=== PATIENT | male | born 1995 | race Caucasian/White ===

== ENCOUNTER 2019-09-13 14:05 | Emergency (ER) | payer OTHER ==
[~2019-09-13] VITALS: Ht 182.9 cm; Wt 68.0 kg
== END 2019-09-13 16:52 | disposition home or self-care (01) ==
LOC: ED 14:05
DX: K59.00 Constipation, unspecified (principal)
CPT/HCPCS: 74177; 80053; 81001; 85025; 96361; 96375; 99284-25; J1170; J2270; J2405; J7030; Q9967

== ENCOUNTER 2020-05-16 11:40 | Inpatient (IN) | payer OTHER ==
[~2020-05-16] VITALS: Ht 182.9 cm; Wt 69.9 kg
--- NOTE | ~2020-05-16 | HP ---
[facility] [address], [place] [address] Draft ADMISSION DATE: 05/16/2020 REASON FOR ADMISSION: Acute calculous cholecystitis. HISTORY OF PRESENT ILLNESS: This 24-year-old white man is accompanied by his father. The patient has been in the [facility] area assisting his girlfriend moving into a home of some sort. He normally resides in [place]. He presented to the emergency room at approximately 2:30 today and evaluated by Dr. Barton with severe right upper abdominal pain and tenderness. The patient was seen in the emergency room at [facility] in the [facility] on May 11, five days ago. An ultrasound showed a 9 mm gallstone with mild gallbladder wall thickening and sonographic Rose sign. He had normal lab studies including liver enzymes and so on and is discharged to follow up in the Surgery Clinic. He reappeared last night with similar symptoms. Normal labs. Once again noted and he was given pain medicine and antinausea medication. He still was not admitted for acute calculous cholecystitis which he clearly had. He then presented to the emergency room at [facility] where he is recognized by Dr. Barton to quite obviously have acute cholecystitis with tenderness in right subcostal area and the aforementioned findings. I was contacted, he was admitted directly for further evaluation and care. The patient has had pain more or less for several weeks, possibly longer. Only now has been problematic. PAST MEDICAL HISTORY: Remarkable only for Achilles tendon surgery a number of years ago at age [age] or so. This was not for rupture, but rather for lengthening somehow. He uses alcohol occasionally. He has been a smoker in the past. MEDICATIONS: Currently include Zofran and oxycodone. ALLERGIES: He has no known drug allergies. REVIEW OF SYSTEMS: He denies any shortness of breath or chest pain. He has had no dysuria or hematuria. Denies any blood per rectum or hematemesis. PATIENT NAME: THAO RAUSCH HISTORY AND PHYSICAL DATE OF : [birth year] REPORT #: [id number] PHYSICIAN: DANTE VILLANUEVA MD PCP: NO PRIMARY CARE PHYSICIAN REPORT IS CONFIDENTIAL AND NOT TO BE RELEASED WITHOUT AUTHORIZATION [facility] [address], [place] [address] Draft PHYSICAL EXAMINATION: GENERAL: Initially somnolent white man accompanied by his father who attends to him. HEENT: Mucous membranes are slightly dry. Trachea is midline. He has no hoarseness. CHEST: Shows normal respiratory excursion, pulses regular. ABDOMEN: Flat, but marked tenderness is noted in the right subcostal area. There is no palpable mass. He has no ascites. He is very thin. LABORATORY STUDIES: Show white count of 6.2, hematocrit 42.4, platelets 270,000. Electrolytes are normal, creatinine 0.75. Liver enzymes normal with alkaline phosphatase of 88. ASSESSMENT: Quite clearly he has acute cholecystitis. I discussed the pathophysiology of this problem with the patient and his father who attends to him. I would recommend cholecystectomy. For now, intravenous fluids, IV antibiotics, parental pain medication and so forth will be administered. We will allow clear liquids for comfort only, but no solid food until following operation. A laparoscopic approach would be intended. However, he may require an open procedure. He understands as does his father the risks of bleeding, infection, bile duct injury, need for open procedure, and failure to cure his symptoms, understanding this they wished to proceed. MD DAVID Brambila/TARSHAL /[id number] cc: Jalil Barton MD Copies: JALIL BARTON MD ~ PATIENT NAME: THAO RAUSCH HISTORY AND PHYSICAL DATE OF : [birth year] REPORT #: [id number] PHYSICIAN: DANTE VILLANUEVA MD PCP: NO PRIMARY CARE PHYSICIAN REPORT IS CONFIDENTIAL AND NOT TO BE RELEASED WITHOUT AUTHORIZATION
--- NOTE | ~2020-05-16 | OR ---
[facility] [address], [place] [address] Draft DATE OF OPERATION: 05/17/2020 SURGEON: Dante Villanueva MD PREOPERATIVE DIAGNOSIS: Acute calculous cholecystitis. POSTOPERATIVE DIAGNOSES: 1. Chronic cholecystitis, minimal debris of gallbladder. 2. Acute appendicitis (aberrant position of appendix in subhepatic space near gallbladder fossa). PROCEDURES: 1. Laparoscopic cholecystectomy with intraoperative cholangiogram. 2. Surgeon-directed fluoroscopy. 3. Laparoscopic appendectomy, prolonged, complicated and difficult. ANESTHESIA: General endotracheal; Alfonzo Donahue CRNA and local 10 mL of 0.25% Marcaine with epinephrine. INDICATION: This 24-year-old white man presented to the emergency room yesterday, having been seen at [facility] in the [facility] 5 days ago and some time subsequent to that. An ultrasound had showed a 9 mm gallstone with mild gallbladder wall thickening and a sonographic Rose sign. He had normal liver enzymes and white count. He was discharged to follow up in the Surgery Clinic in the [facility]. He reappeared and was found to have no elevation of liver enzymes, but markedly increase in right upper abdominal pain and tenderness. He still was not admitted for acute cholecystitis and presented to the emergency room at [facility] where is recognized by Dr. Barton to quite obviously have acute abdomen with tenderness in right subcostal area. Given his aforementioned findings, I was requested to see patient and admitted him directly for presumed acute calculous cholecystitis. Notably, his white count and liver enzymes remain normal. Clinical examination shows him to have marked tenderness in right subcostal area consistent with acute abdomen. A CT scan with contrast was performed at [facility] yesterday at 3:30 p.m. showing no radiopaque gallstones in the gallbladder, moderate amount of stool in the abdomen, appendix appeared normal right upper quadrant above the level of the gallbladder and fundus between the liver and the kidney. There was some small amount of pelvic fluid. Notably, the patient is quite thin with very few tissue planes to distinguish organs. PATIENT NAME: THAO RAUSCH OPERATIVE REPORT DATE OF : [birth year] REPORT #: [id number] PHYSICIAN: DANTE VILLANUEVA MD PCP: NO PRIMARY CARE PHYSICIAN REPORT IS CONFIDENTIAL AND NOT TO BE RELEASED WITHOUT AUTHORIZATION [facility] [address], [place] [address] Draft He has been given fluid resuscitation, parenteral pain medication, IV antibiotic Ancef anticipating cholecystectomy for acute cholecystitis today. The risks of bleeding, infection, bile duct injury, need for other indicated procedures and other unforeseen complications were reviewed in detail. He understands and wished to proceed. FINDINGS: Although, the gallbladder had mild chronic inflammation, there was no sign of acutely inflamed gallbladder, no thickened gallbladder wall or pericholecystic fluid. There were adhesions to the gallbladder consistent with chronic cholecystitis. The gallbladder was excised and once opened showed some debris within the gallbladder, but no stone proper. Cholangiogram was normal. Given discordant findings to his physical examination, close inspection was undertaken as regard the appendix. The base of the appendix near the cecum was normal. The appendix was retrocecal and retracted cephalad. Ultimately, the distal 3rd nestled in the subhepatic space on the right side just outside Gerota's fascia. It looked to be subacutely inflamed. There was no sign of purulence or perforation however. On that basis, the appendectomy was performed. The appendix did show subacute inflammation. There were no other findings of concern. DESCRIPTION OF PROCEDURE: The patient was brought to the operating room, given a general endotracheal anesthetic. Preoperative antibiotic Ancef had been given. Sequential compression device stockings were used and heparin subcutaneously administered. The abdomen was clipped and prepared with chlorhexidine solution and draped sterilely. An infraumbilical incision was made and using an open Nile cannula technique, pneumoperitoneum was achieved to a level of 14 mmHg of carbon dioxide gas. Intraabdominal inspection showed no sign of ascites or carcinomatosis, the liver was normal. The gallbladder was visualized and showed chronic inflammation, certainly not inflamed as I had expected based on his clinical exam. Three additional trocars were placed in usual configuration in the subxiphoid, right midclavicular, and right anterior axillary line. The gallbladder was elevated cephalad and had a few adherent omental adhesions, which were taken down with blunt and electrocautery dissection. Further elevation of the gallbladder was undertaken. The infundibulum grasped and using blunt and electrocautery dissection, the triangle of Calot was dissected free. Certainly, the gallbladder did not seem to have acute inflammation. The cystic duct was well identified, a clip was applied across the gallbladder cystic duct junction and transverse choledochotomy made in the cystic duct. Retrograde milking of the cystic duct showed clear bile. Using an Diane type cholangiocatheter, intraoperative cholangiography was undertaken showing free flow of contrast in biliary tree with prompt emptying into the duodenum. PATIENT NAME: THAO RAUSCH OPERATIVE REPORT DATE OF : [birth year] REPORT #: [id number] PHYSICIAN: DANTE VILLANUEVA MD PCP: NO PRIMARY CARE PHYSICIAN REPORT IS CONFIDENTIAL AND NOT TO BE RELEASED WITHOUT AUTHORIZATION [facility] [address] [place], [place] [address] Draft There was no anomaly or problem. The catheter was removed and the cystic duct was triply clipped and divided and the gallbladder dissected free in a retrograde fashion using electrocautery. The gallbladder was extracted through the infraumbilical port site, opened on the back table and instead of finding a 9 mm stone, has had been postulated elsewhere on ultrasound. There was no stone, but some debris within the gallbladder not much though. On the basis of the discordant findings of the gallbladder compared to his clinical examination, careful inspection of the appendix was undertaken. The base of the appendix appeared normal, but it tracked in a retrocecal position. It was followed by rolling the colon toward the midline and noted to extend all the way to the hepatic fossa. The distal 3rd of the appendix appeared to be inflamed, but not by any means, but definitely not normal. Adhesions from the incomplete rotation of the cecum and the aberrant placement of the appendix in the subhepatic space were freed with blunt and electrocautery dissection. Meticulous care was undertaken to mobilize the mesoappendix well. Ultimately, an Endo-ONEAL stapling load was used for part of it, although other areas were secured with clips. Once the mesoappendix was completely skeletonized, one could appreciate the length of the appendix and it's chronic inflammatory appearance. The base of the appendix was transected with Endo-ONEAL stapling device, flushed with the cecum, the appendix was extracted through the infraumbilical port site through the trocar and photograph taken of both specimens including the gallbladder and the appendix. Irrigation was undertaken in the retrohepatic area. Minimal amount of oozing at the staple line was secured with clips and some cautery. Some Laura was applied as well. By conclusion, there was no bleeding at all. Excess irrigation fluid was suctioned free. The trocars were removed under direct visualization and the infraumbilical fascial incision was reapproximated with interrupted 0 Vicryl suture. A 10 mL of 0.25% Marcaine with epinephrine was injected locally. The epigastric fascial incision was reapproximated with 0 Vicryl as well given his thin body habitus. The skin was closed with running subcuticular interrupted 3-0 Vicryl. Steri-Strips were applied. The patient was ultimately extubated and transferred to the recovery room in good condition having suffered no complication. In aggregate, I believe that patient had chronic cholecystitis, but acute appendicitis and the fecalith noted on ultrasound in [facility] in [facility] may have been related to the appendix itself that is uncertain. We await the pathology report for that information. Dante Villanueva MD PATIENT NAME: THAO RAUSCH OPERATIVE REPORT DATE OF : [birth year] REPORT #: [id number] PHYSICIAN: DANTE VILLANUEVA MD PCP: NO PRIMARY CARE PHYSICIAN REPORT IS CONFIDENTIAL AND NOT TO BE RELEASED WITHOUT AUTHORIZATION [facility] [address], [place] [address] Draft /TARSHAL /[id number] cc: Jalil Barton MD [facility] Emergency Room Copies: JALIL BARTON MD ~ PATIENT NAME: THAO ARUSCH BHARAT OPERATIVE REPORT DATE OF : [birth year] REPORT #: [id number] PHYSICIAN: DANTE VILLANUEVA MD PCP: NO PRIMARY CARE PHYSICIAN REPORT IS CONFIDENTIAL AND NOT TO BE RELEASED WITHOUT AUTHORIZATION
[2020-05-16] MEDS ORDERED: PERCOCET 10-321 EACH PO (12:40)
[2020-05-16] MEDS ORDERED: ONDANSETRON HCL8 MG PO (12:40)
--- NOTE | 2020-05-16 16:01 | NUR ---
PT ARRIVED TO UNIT VIA STRETCHER FROM ER. REPORT RECEIVED FROM KE ARSHAD. PT REPORTS CONSTANT SHARP, BURNING ABDOMINAL PAIN 5/10. VSS, PT IS AFEBRILE. WILL REMAIN NPO UNTIL FURTHER NOTICE. FATHER IS IN ROOM. PT GIVEN DR. VILLANUEVA ON WHAT TO EXPECT UPON GALLBLADDER REMOVAL. NEEDS FREQUENT EDUCATION. CALL LIGHT IN REACH.
--- NOTE | 2020-05-16 17:29 | NUR ---
DR VILLANUEVA IN SEEING PT NOW. FATHER REMAINS IN ROOM.
--- NOTE | 2020-05-16 18:19 | NUR ---
WILLIAN WAITE, REPORTED LOW BP 97/45. THIS RN RECHECKED VIA MANUAL AND BP WAS 92/58. MD AWARE. NO NEW ORDERS. PT IS RECEIVING FLUID BOLUS OF LR AT THIS TIME.
--- NOTE | 2020-05-16 18:20 | NUR ---
PT IS SEDATED LIKELY D/T PAIN MEDS IN ER. RESPONDS TO VERBAL STIMULI AND TOUCH. DROWSY WHEN AWAKE BUT ANSWERS QUESTIONS APPROPRIATELY.
--- NOTE | 2020-05-16 18:41 | NUR ---
MED REC COMPLETE
--- NOTE | 2020-05-16 19:00 | NUR ---
REPORT RECEIVED FROM TITA ARSHAD. PATIENT RESTING IN BED WITH EYES CLOSED. IVF INFUSING WNL. NO APPARENT NEEDS AT THIS TIME. CALL LIGHT IN REACH.
--- NOTE | 2020-05-16 20:00 | NUR ---
PT CALLING, ASKING IF HE CAN GET SOME WATER OR SOME FOOD, RN OK'D JELLO AND ICE WATER PER PT'S DIET
--- NOTE | 2020-05-16 20:30 | NUR ---
SCHEDULED MEDICATIONS ADMINISTERED, ASSESSMENT COMPLETE. VITALS AND I/O'S COMPLETE. IVF INFUSING WNL. ASSESSMENT UNREMARKABLE, BOWEL TONES ACTIVE, PT REPORTS 8/10 ABDOMINAL PAIN BUT REFUSES MORPHINE, REQUESTS DILAUDID. THIS RN PHONED DR VILLANUEVA, NEW ORDERS RECEIVED. ON CLEAR LIQUIDS UNTIL MIDNIGHT, TOLERATING WELL. CALL LIGHT IN REACH.
--- NOTE | 2020-05-16 21:40 | NUR ---
ABX ADMINISTERED ALONG WITH PRN TYLENOL. BROTH AND JELLO PROVIDED. PT ON PHONE WITH FRIENDS. NICOTINE PATCH APPLIED PER PT REQUEST, FIRST ADMINISTRATION OF THIS PATCH SINCE ADMISSION. PT STATES NO FURTHER NEEDS. CALL LIGHT WITHIN REACH.
--- NOTE | 2020-05-16 22:05 | NUR ---
CALL LIGHT ANSWERED, PT REQUESTS MORE BROTH. AMBULATES TO BR BY SELF. NO FURTHER REQUESTS AT THIS TIME. CALL LIGHT IN REACH
--- NOTE | 2020-05-16 23:29 | NUR ---
CONSENT FOR SURGERY SIGNED BY PATIENT, WITNESSED BY THIS RN. PT REPORTS NO NEEDS OR PAIN AT THIS TIME. ON PHONE WITH FRIENDS. IVF INFUSING WNL. NPO AT MIDNIGHT. CALL LIGHT IN REACH
--- NOTE | 2020-05-16 23:56 | NUR ---
ALL LIQUIDS REMOVED FROM ROOM, PATIENT REMINDED ABOUT HOSPITAL QUIET HOURS. IVF INFUSING WNL. CALL LIGHT IN REACH, NO FURTHER REQUESTS.
--- NOTE | 2020-05-17 02:23 | NUR ---
VITALS COMPLETE. PT AMBULATED TO BR BY SELF TO VOID. I/O'S COMPLETE. NPO. IVF INFUSING WNL. PT AWAKE AND STATES IS FEELING ANXIOUS ABOUT SURGERY, REASSURED AND DISCUSSED PLAN WITH PT. STATES NO NEEDS AT THIS TIME. CALL LIGHT IN REACH.
--- NOTE | 2020-05-17 04:11 | NUR ---
ROUNDED ON PATIENT, AWAKE TALKING ON THE PHONE. IVF INFUSING. NO NEEDS AT THIS TIME. CALL LIGHT IN REACH
--- NOTE | 2020-05-17 06:12 | NUR ---
SCHEDULED MEDICATIONS ADMINISTERED, VITALS COMPLETE. PT DROWSY, WAS AWAKE UNTIL APPROX 0400. IVF INFUSING WNL. LR HUNG ON STRAIGHT TUBING FOR SURGERY. CALL LIGHT IN REACH
--- NOTE | 2020-05-17 07:55 | NUR ---
IN TO WAKE PT FOR PRE SURGICAL [place]ED[place]. MORNING MEDS GIVEN AND ASSESSMENT COMPLETED. IV TORADOL GIVEN FOR 7 ABD PAIN. PT DENIES NAUSEA. REMAINS NPO. LR RUNNING @ 85 MLS/HR. VOIDING QUANTITY SUFFICIENT. NEW GOWN PUT ON. AWAITING SURGERY. CALL LIGHT IN REACH. NO OTHER NEEDS AT THIS TIME.
--- NOTE | 2020-05-17 09:02 | NUR ---
PATIENT AWAKE IN BED, VITALS AND I&OS CHARTED. CALL LIGHT IN REACH
--- NOTE | 2020-05-17 10:13 | NUR ---
PT AMBULATED LARGE LOOP IN HALLWAY X2 THIS MORNING. UP IN CHAIR NOW. ABDOMINAL PAIN IS WELL MANAGED W/ IV TORADOL. NO ACUTE CHANGES.
--- NOTE | 2020-05-17 10:45 | NUR ---
PT TAKEN TO SURGERY BY VITALIY BLANCAS RN FROM DAY SURGERY. PRE SURGICAL [place] COMPLETED, PREOP CHECKLIST, ANETHESIA SUMMARY AND INFORMED CONSENT ALL ON CHART. PT CONNECTED TO LR ON STRAIGHT TUBING, CLAMPED. PT VOIDED PRIOR TO DEPARTING. SCD'S ON. FATHER WAITING IN ROOM.
--- NOTE | 2020-05-17 12:37 | NUR ---
PT HAS BEEN TAKEN TO SURGERY, FATHER FLORIDALMA WAITING IN . GAVE ENCOURAGEMENT, FLORIDALMA VERY PLEASED WITH ALL ASPECTS OF HIS SON'S CARE AT [facility]. ALL QUESTIONS ASKED ANSWERED. GAVE BLESSING
--- NOTE | 2020-05-17 13:06 | NUR ---
05/17/20 1306 Brisa Curran 1257 PATIENT ARRIVES TO PACU UNRESPONSIVE TO PAIN. RESP EVEN, SNORING, REQUIRES RN JAW THRUST, SNORING RESOLVED. MASK AT 6 LITERS 1300 PATIENT CONTINUES TO BE UNREPONSIVE TO PAIN, OCCASIONAL JAW THRUST TO RELIEVE SNORING. MASK CONTINUED AT 6 LITERS. 1305 PATIENT SLEEPING. MOVES EXTREMITIES, BUT DOES NOT FOLLOW COMMANDS. RESP EVEN AND UNLABORED, NO LONGER SNORING. MASK OFF, ROOM AIR SATS >95%.
--- NOTE | 2020-05-17 13:30 | NUR ---
Spoke with pt's dad as pt is in surgery. He lives between [facility] where his girlfriends home is. He is active and does not use any DME. Pt will more than likely go home this afternoon. Dad denies needs as pt has good support from family.
--- NOTE | 2020-05-17 13:40 | NUR ---
pt arrived to unit via stretcher at 1340 accompanied by Brisa PUBLIC HEALTH WORKER. Pt awake and alert/oriented. VSS. Lung sounds are clear. Lap sites are intact, minimal drainage. Pt dangled and then stood and walked to bathroom to void. Tolerated well. Denies pain at this time. Requesting food. Father is in room.
--- NOTE | 2020-05-17 14:14 | NUR ---
REGULAR DIET LUNCH APPROVED AND ORDERED PER PATIENT AWAKE IN BED, FATHER IN ROOM. CALL LIGHT IN REACH, NOOTHER NEEDS AT THIS TIME
[2020-05-17] MEDS ORDERED: ACETAMINOPHEN500 MG PO (14:41)
[2020-05-17] MEDS ORDERED: NICOTINE1 EAC2 TD (14:41)
[2020-05-17] MEDS ORDERED: IBUPROFEN600 MG PO (14:41)
--- NOTE | 2020-05-17 14:54 | NUR ---
Pt scheduled to see Kristina Rutherford Saturday 05/20 at 3:10 pm. Chart notes and op note faxed to Do at [facility] per request to establish care.
--- NOTE | 2020-05-17 15:52 | NUR ---
Pt ate food and tolerated well. Continues to deny pain and nausea. Ambulatory. Ambulated large loop of hallway w/ Naomi hammonds RN. Tolerated well. Dr. Mejia has been in to see pt and has ordered for DC once post-op monitoring complete. Naomi RN removed disconnected pt from fluids and removed LFA IV. VS remain stable. No acute changes. DC f/u appointment has been made and pt given education.
--- NOTE | 2020-05-17 15:54 | NUR ---
PATIENT AMBULATING WELL, GOOD P.O. INTAKE. IV REMOVED WITH CATHETER INTACT. PATIENT IS GETTING DRESSED. VITALS TO BE DONE AT APPROX 1545 AND PATIENT MAY DISCHARGE AFTER 4PM. FATHER IN ROOM WITH PATIENT.
--- NOTE | 2020-05-17 17:16 | NUR ---
PATIENT HAS BEEN DISCHARGED FOR AN HOUR, PATIENT JUST CALLED TO REPORT MISSING A COUPLE VALUABLES(RING AND BRACELET) THIS DRILLING PLANT OPERATOR LOOKED THROUGH ALL GARBAGE IN ROOM, NOTHING OF VALUE WAS FOUND. PAVITHRA RIVERS NOTIFIED. TITA AWARE AND HAD SPOKEN WITH PATIENT ABOUT THIS EARLIER.
== END 2020-05-17 16:05 | disposition home or self-care (01) | DRG 418 ==
LOC: ED 11:40 → MS 14:32
PROVIDERS: ADMIT Surgery; ATTEND Surgery
PROC: BF101ZZ Fluoroscopy of Bile Ducts using Low Osmolar Contrast (ICD-10-PCS; 2020-05-17)
PROC: 0FT44ZZ Resection of Gallbladder, Percutaneous Endoscopic Approach (ICD-10-PCS; principal; 2020-05-17 11:00)
PROC: 0DTJ4ZZ Resection of Appendix, Percutaneous Endoscopic Approach (ICD-10-PCS; 2020-05-17 11:00)
DX: K81.1 Chronic cholecystitis (principal); K35.80 Unspecified acute appendicitis; K38.1 Appendicular concretions; Z20.822 Contact with and (suspected) exposure to COVID-19; Z87.891 Personal history of nicotine dependence
CPT/HCPCS: 74300; 80053; 81001; 83690; 85025; 99284; C9803; J0131; J0330; J0690; J1100; J1170; J1644; J1885; J2001; J2405; J2704; J3010; J7030; J7042; J7121; Q9967; U0003